=== PATIENT | female | born 1990 | race Caucasian/White ===

== ENCOUNTER 2022-02-26 13:30 | Day surgery (SDC) | payer OTHER ==
[~2022-02-26] VITALS: Ht 170.2 cm; Wt 64.9 kg
[2022-02-26] MEDS ORDERED: ZEBUTAL 50-3251 EAC1 (14:01)
[2022-02-26] MEDS ORDERED: LORA.5 (14:02)
[2022-02-26] MEDS ORDERED: ONDA4ODT (14:02)
[2022-02-26] MEDS ORDERED: FLUO10 (14:02)
[2022-02-26] MEDS ORDERED: AMPDEX30CR (14:02)
[2022-02-26] MEDS ORDERED: AMPDEX10 (14:02)
[2022-02-26] MEDS ORDERED: OXCARBAZEPINE150 M1 (14:03)
[2022-02-26] MEDS ORDERED: TRAZ50 (14:03)
[2022-02-26] MEDS ORDERED: PANT20 (14:03)
== END 2022-02-26 15:31 | disposition home or self-care (01) ==
LOC: ORSCSDS 13:30
PROVIDERS: Student in an Organized Health Care Education/Training Program
PROC: 0DB98ZX Excision of Duodenum, Via Natural or Artificial Opening Endoscopic, Diagnostic (ICD-10-PCS; principal; 2022-02-26 15:15)
PROC: 0DB68ZX Excision of Stomach, Via Natural or Artificial Opening Endoscopic, Diagnostic (ICD-10-PCS; principal; 2022-02-26 15:15)
DX: R11.2 Nausea with vomiting, unspecified (principal); K26.9 Duodenal ulcer, unspecified as acute or chronic, without hemorrhage or perforation; R10.9 Unspecified abdominal pain; K29.80 Duodenitis without bleeding; K29.70 Gastritis, unspecified, without bleeding; K21.9 Gastro-esophageal reflux disease without esophagitis; F41.1 Generalized anxiety disorder; E22.1 Hyperprolactinemia; Z79.899 Other long term (current) drug therapy
CPT/HCPCS: 88305; 88342; J0461; J2250; J2405; J2704

== ENCOUNTER 2023-05-04 18:18 | Emergency (ER) | payer OTHER ==
[~2023-05-04] VITALS: Ht 170.2 cm; Wt 63.5 kg
[~2023-05-04 18:18] MED LIST: AMPDEX10; AMPDEX30CR; FLUO10; LORA.5; ONDA4ODT; OXCARBAZEPINE150 M1; PANT20; TRAZ50; ZEBUTAL 50-3251 EAC1
[2023-05-04 18:39] VITALS: BP 100/62
[2023-05-04 19:11] LABS: BASOPHILS ABSOLUTE AUTO 0.03 K/mm3 (0.00-0.23); BASOPHILS PERCENT AUTO 1 % (0-2); EOSINOPHILS ABSOLUTE AUTO 0.15 K/mm3 (0.00-0.68); EOSINOPHILS PERCENT AUTO 2 % (0-6); Hematocrit 29.2 % (33.0-51.0); Hemoglobin 9.3 g/dL (11.5-16.0); IMMATURE GRAN ABSOLUTE AUTO 0.01 K/mm3 (0.00-0.10); IMMATURE GRAN PERCENT AUTO 0 % (0-1); LYMPHOCYTES PERCENT AUTO 29 % (21-46); MONOCYTES ABSOLUTE AUTO 0.69 K/mm3 (0.16-1.47); MONOCYTES PERCENT AUTO 11 % (4-13); Mean Corpuscular HGB 26.6 pg (26.0-34.0); Mean Corpuscular HGB Conc 31.8 g/dL (31.5-36.5); Mean Corpuscular Volume 84 fL (80-100); Mean Platelet Volume 9.2 fL (9.1-12.4); NEUTROPHILS ABSOLUTE AUTO 3.52 K/mm3 (1.96-9.15); NEUTROPHILS PERCENT AUTO 57 % (41-73); Platelet Count 497 K/mm3 (150-400); RDW Coefficient Variation 15.1 % (11.7-14.2); RDW Standard Deviation 46.2 fL (35.1-46.3); Red Blood Cell Count 3.49 M/mm3 (3.80-5.20)
[2023-05-04 19:33] LABS: Albumin, Blood 3.9 g/dL (3.4-5.0); Albumin/Globulin Ratio 1.1 (0.8-1.8); Bilirubin, Total 0.3 mg/dL (0.1-1.0); Bun/Creatinine Ratio 25.6 (12.0-20.0); Calcium, Blood 8.8 mg/dL (8.5-10.1); Creatinine, Blood 0.67 mg/dL (0.40-1.00); Globulin, Blood 3.5 g/dL (2.2-4.0); Potassium, Blood 3.6 mmol/L (3.5-5.5); Total Protein, Blood 7.4 g/dL (6.4-8.2)
== END 2023-05-04 21:03 | disposition left against medical advice (07) ==
LOC: ER 18:18
PROVIDERS: Emergency Medicine
DX: Z53.21 Procedure and treatment not carried out due to patient leaving prior to being seen by health care provider (principal); Z88.1 Allergy status to other antibiotic agents; Z88.5 Allergy status to narcotic agent; Z88.8 Allergy status to other drugs, medicaments and biological substances
CPT/HCPCS: 71046; 80053; 84484; 85025; 93005; 93010

== ENCOUNTER 2024-12-10 20:07 | Emergency (ER) | payer OTHER ==
[~2024-12-10] VITALS: Ht 170.2 cm; Wt 68.0 kg
[2024-12-10] MEDS ORDERED: Acetaminophen 500 MG Tab PO ONE (21:40)
[2024-12-10] MEDS ORDERED: Prochlorperazine Edisylate 10 mg Vial IV ONE (21:40)
[2024-12-10] MEDS ORDERED: Ketorolac Tromethamine 15mg Vial IV ONE (22:05)
[2024-12-10 22:19] LABS: BASOPHILS ABSOLUTE AUTO 0.02 K/mm3 (0.00-0.23); BASOPHILS PERCENT AUTO 0 % (0-2); EOSINOPHILS ABSOLUTE AUTO 0.09 K/mm3 (0.00-0.68); EOSINOPHILS PERCENT AUTO 2 % (0-6); Hemoglobin 10.8 g/dL (11.5-16.0); IMMATURE GRAN ABSOLUTE AUTO 0.01 K/mm3 (0.00-0.10); IMMATURE GRAN PERCENT AUTO 0 % (0-1); LYMPHOCYTES ABSOLUTE AUTO 1.72 K/mm3 (0.84-5.20); LYMPHOCYTES PERCENT AUTO 31 % (21-46); MONOCYTES ABSOLUTE AUTO 0.66 K/mm3 (0.16-1.47); MONOCYTES PERCENT AUTO 12 % (4-13); Mean Corpuscular HGB 30.5 pg (26.0-34.0); Mean Corpuscular HGB Conc 32.7 g/dL (31.5-36.5); Mean Corpuscular Volume 93 fL (80-100); Mean Platelet Volume 8.6 fL (9.1-12.4); NEUTROPHILS ABSOLUTE AUTO 3.07 K/mm3 (1.96-9.15); NEUTROPHILS PERCENT AUTO 55 % (41-73); Platelet Count 388 K/mm3 (150-400); RDW Coefficient Variation 11.9 % (11.7-14.2); RDW Standard Deviation 40.9 fL (35.1-46.3); Red Blood Cell Count 3.54 M/mm3 (3.80-5.20); White Blood Cell Count 5.57 K/mm3 (4.00-11.30)
[2024-12-10 22:37] LABS: Albumin, Blood 3.8 g/dL (3.4-5.0); Albumin/Globulin Ratio 1.2 (0.8-1.8); Bilirubin, Total 0.4 mg/dL (0.1-1.0); Bun/Creatinine Ratio 20.7 (12.0-20.0); Calcium, Blood 8.8 mg/dL (8.5-10.1); Creatinine, Blood 0.68 mg/dL (0.40-1.00); Globulin, Blood 3.1 g/dL (2.2-4.0); Potassium, Blood 3.6 mmol/L (3.5-5.5); Total Protein, Blood 6.9 g/dL (6.4-8.2)
[2024-12-10 23:00] VITALS: BP 94/62
[2024-12-10] MEDS ORDERED: DiphenhydrAMINE HCl 50 MG/ML 1ML Vial IV ONE (23:00)
[2024-12-10] MEDS ORDERED: Dexamethasone Sod Phos 10 MG/ML 1ML VIAL IV ONE (23:25)
[2024-12-10] MEDS ORDERED: RX Prepack 2 Tabs Ondansetron ODT 4MG UD ONE (23:25)
== END 2024-12-10 23:34 | disposition home or self-care (01) ==
LOC: ER 20:07
PROVIDERS: Emergency Medicine
DX: R51.9 Headache, unspecified (principal); H54.62 Unqualified visual loss, left eye, normal vision right eye; Z79.899 Other long term (current) drug therapy; Z88.5 Allergy status to narcotic agent; Z88.1 Allergy status to other antibiotic agents; Z88.8 Allergy status to other drugs, medicaments and biological substances
CPT/HCPCS: 70450; 80053; 85025; 96374; 96375; 99284-25; A9270; J0780; J1100; J1200; J1885